=== PATIENT | female | born 1975 | race Two or more races ===

== ENCOUNTER 2019-07-15 19:39 | Emergency (ER) | payer MEDICAID ==
[~2019-07-15] VITALS: Ht 167.6 cm; Wt 68.0 kg
[2019-07-15 20:10] VITALS: BP 159/80
--- NOTE | 2019-07-15 20:10 | NUR ---
Patient states that she does not want to be seen by an MD. patient walked out of ED with a steady gait and complains of no pain. patient is alert and oriented x4. [place] and once upon arrival patient stated that she feels okay and does not want to be seen.
== END 2019-07-15 20:10 | disposition left against medical advice (07) ==
LOC: EDBD 19:39 → EMR 20:10
DX: Z53.21 Procedure and treatment not carried out due to patient leaving prior to being seen by health care provider (principal)